=== PATIENT | female | born 1985 | race Caucasian/White ===

== ENCOUNTER 2019-06-10 02:12 | Emergency (ER) | payer OTHER ==
--- NOTE | 2019-06-10 02:18 | PDOC ---
History of Present Illness - General Chief Complaint: Syncope/Near Syncope Stated Complaint: SYNCOPE Time Seen by Provider: 06/10/19 02:14 - History of Present Illness Initial Comments: 06/10/19 02:44 This otherwise healthy 33-year-old woman arrives in the ER accompanied by her boyfriend after syncopal episode: Just prior to arrival, patient got out of bed to go to the bathroom. She states that she is at the second day of her menstrual cycle during which she usually has fairly severe cramps and heavy blood flow. She remembers urinating and feeling lightheaded when she arose from the toilet, stating to her boyfriend "something's not right". Her next recollection is her boyfriend standing over her while she she was lying on the bathroom floor. Loss of consciousness was very brief and there was no seizure or incontinence. She denies any residual lightheadedness, palpitations, nausea , chest pain or shortness of breath. She has mild discomfort in the right posterior portion of her head where she believes she might have impacted the floor. She has had no bleeding from scalp. Patient had a small amount of food to eat in the past because she states she did not eat or drink a lot during the day today. No recent fever, vomiting or diarrhea. Patient states she has fainted in the past multiple times: When she was very hot while visiting [place], during times when she has not eaten or drank enough Meds: Lexapro No known allergies Non-smoker; no daily alcohol or recreational drug use Past History - Past Medical History Allergies/Adverse Reactions: Allergies Allergy/AdvReac Type Severity Reaction Status Date / Time No Known Allergies Allergy Verified 06/10/19 02:14 Home Medications: Ambulatory Orders Escitalopram Oxalate [Lexapro -] 10 mg PO DAILY 06/10/19 Review of Systems - Review of Systems Able to Perform ROS?: Yes Comments:: 12 point review of systems is negative except for what is noted in the history of present illness *Physical Exam - Vital Signs Last Vital Signs Temp Pulse Resp BP Pulse Ox 97.5 F L 83 16 114/52 L 100 06/10/19 02:15 06/10/19 02:15 06/10/19 02:15 06/10/19 02:15 06/10/19 02:15 - Physical Exam GENERAL: Adult female, alert and oriented x3, in no acute distress HEAD: Mildly tender, mildly edematous area of the right parietal scalp; no abrasions/lacerations seen No browning sign; no hemotympanum EYES: PERRLA, EOMI, sclera anicteric, conjunctiva clear. ENT: Ears normal, nares patent, oropharynx clear without exudates. Dry mucous membranes. NECK: Normal range of motion, supple without lymphadenopathy, JVD, or masses. Nontender. LUNGS: Breath sounds equal, clear to auscultation bilaterally. No wheezes, and no crackles. HEART:Regular rate and rhythm, normal S1 and S2 without murmur, rub or gallop. ABDOMEN:.normal bowel sounds No guarding,tenderness or rebound.No masses No distention. EXTREMITIES: Normal range of motion, no edema. No clubbing or cyanosis. No erythema, or tenderness. NEUROLOGICAL: Cranial nerves II through XII grossly intact. Normal speech. No focal neurological deficits. MUSCULOSKELETAL: Back non-tender to palpation, no CVA tenderness SKIN: Warm, Dry, normal turgor, no rashes or lesions noted. 12-lead electrocardiogram is performed interpreted by me: Normal sinus rhythm at 83/BPM; axis, intervals and waveforms are all normal. No evidence of acute ST or T wave abnormalities; no evidence of acute cardiac arrhythmia Medical Decision Making - Medical Decision Making This 33-year-old woman, otherwise healthy with history of previous episodes of reflex syncope presents with brief loss of consciousness at home after urinating. Patient is currently menstruating and has fairly severe cramps with heavy blood flow today. Patient admits not eating or drinking much today because she was distracted by her activities. She may have hit her head on the bathroom floor when she lost consciousness. Exam as noted with dry mucous membranes consistent with mild dehydration; she does have mild tenderness of the right parietal region without abrasion or laceration. Remainder of the exam is normal. Twelve-lead electrocardiogram as noted above is normal. [id number] PGU was negative Because patient has had previous episodes of vasovagal type syncope and multiple reasons for situational syncope currently ( post micturition/possible hypovolemia secondary to decreased p.o. intake and heavy menstrual flow) and a normal twelve-lead electrocardiogram, no further diagnostic work-up will be performed. The patient has some tenderness and mild pain in the area where she may have struck her head. She has been recommended to avoid all strenuous activity tomorrow (patient will skip class), use Tylenol as needed for headache and return to ER if she has severe pain/nausea/lethargy or any other acute neurologic developments. She should plan on following up with her general medical doctor within the next 2 to 3 days. Meanwhile, she should strive to drink plenty of fluids and eat regular meals. Discharge - Discharge Information Problems reviewed: Yes Clinical Impression/Diagnosis: Vasovagal syncope Condition: Stable Disposition: HOME - Follow up/Referral - Patient Discharge Instructions Patient Printed Discharge Instructions: DI for Syncope in Adults (Fainting) Additional Instructions: Drink plenty of fluids; frequent small meals Avoid strenuous activity tomorrow Tylenol as needed for pain No class tomorrow as discussed Return to ER if you have severe headache, nausea/vomiting or excessive sleepiness Follow-up with your doctor within the next 2 to 3 days - Post Discharge Activity
[2019-06-10 02:24] VITALS: BP 114/52; PULSE 83; TEMP 97.5; BMI 21.9
--- NOTE | 2019-06-10 11:29 | EKG ---
Test Reason : Blood Pressure : / mmHG Vent. Rate : 073 BPM Atrial Rate : 073 BPM P-R Int : 142 ms QRS Dur : 076 ms QT Int : 392 ms P-R-T Axes : 055 050 064 degrees QTc Int : 431 ms NORMAL SINUS RHYTHM NORMAL ECG NO PREVIOUS ECGS AVAILABLE Confirmed by MD JESSICA, JAMES ([id number]) on 06/10/2019 11:29:00 AM Referred By: LILI FRANCOIS Confirmed By:JAMES LOPEZ MD
== END 2019-06-10 02:44 | disposition home or self-care (01) ==
LOC: FER 02:12
DX: R55 Syncope and collapse (principal)
CPT/HCPCS: 81025; 93005; 99283-25